=== PATIENT | female | born 1955 | race Caucasian/White ===

== ENCOUNTER 2017-04-09 22:09 | Emergency (ER) | payer MEDICARE, MEDICAID ==
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
--- NOTE | 2017-04-09 23:08 | RAD ---
Procedure: XR HIP 2 OR MORE VIEWS Exam Date: 04/09/2017 Ordering Provider: Yojana Correa Clinical Indication: Pain s/p fall 3 days ago Comparison: 11/01/2012 FINDINGS: Minimally displaced fracture involving the greater trochanter. No other fracture or dislocation. Articular surface of the left hip is intact. Visualized portions of the left hemipelvis are unremarkable. There is no lytic or sclerotic lesion. No suspicious calcifications. Impression: 1. Minimally displaced fracture involving the greater trochanter. Electronically signed by: Robert Hickey MD 04/09/2017 11:08 PM CDT
[2017-04-09] MEDS ORDERED: CYCLOBENZAPRINE HCL 5 MG TAB PO ONE (23:20)
[2017-04-09] MEDS ORDERED: CYCLOBENZAPRINE HCL 10 MG TAB ONE (23:22)
[2017-04-09 23:56] VITALS: BP 126/78; TEMP 98.7; O2SAT 95
== END 2017-04-09 23:45 | disposition home or self-care (01) ==
LOC: ER 22:09
DX: S72.115A Nondisplaced fracture of greater trochanter of left femur, initial encounter for closed fracture (principal); I50.9 Heart failure, unspecified; K21.9 Gastro-esophageal reflux disease without esophagitis; Z87.891 Personal history of nicotine dependence; Z88.2 Allergy status to sulfonamides; Z88.7 Allergy status to serum and vaccine; Z88.8 Allergy status to other drugs, medicaments and biological substances; W19.XXXA Unspecified fall, initial encounter; Y92.410 Unspecified street and highway as the place of occurrence of the external cause

== ENCOUNTER 2017-08-27 16:57 | Emergency (ER) | payer MEDICARE, MEDICAID ==
[2017-08-27 17:20] VITALS: TEMP 98.1; O2SAT 100
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
--- NOTE | 2017-08-27 17:53 | RAD ---
PROCEDURE: Hand,Right 3 Views CLINICAL HISTORY: hand injury INDICATION: Same as above COMPARISON: None . TECHNIQUE: 3.0 Views of the right hand were done. FINDINGS: There is an angulated fracture in the distal diaphysis of the fifth metacarpal bone of the right hand The joint spaces of the hand and the wrist are relatively well-maintained. The bone mineralization is normal for patient's age and sex. The soft tissues are radiographically unremarkable. There is no visualization of any radiopaque foreign bodies in the evaluated soft tissues. If the wrist pain persists, repeat films can be done in 7-10 days interval to rule out occult fractures. Alternatively an MRI of the wrist can be obtained. IMPRESSION: There is an angulated fracture in the distal diaphysis of the fifth metacarpal bone of the right hand Place of interpretation: [facility]. Electronically signed by: Mitchel White MD 08/27/2017 5:52 PM CDT Workstation: [id number]
[2017-08-27 18:50] VITALS: BP 122/74
== END 2017-08-27 18:35 | disposition home or self-care (01) ==
LOC: ER 16:57
DX: S62.356A Nondisplaced fracture of shaft of fifth metacarpal bone, right hand, initial encounter for closed fracture (principal); I50.9 Heart failure, unspecified; Z87.891 Personal history of nicotine dependence; K21.9 Gastro-esophageal reflux disease without esophagitis; Z88.2 Allergy status to sulfonamides; Z88.7 Allergy status to serum and vaccine; W22.09XA Striking against other stationary object, initial encounter; Y92.9 Unspecified place or not applicable

== ENCOUNTER 2017-12-06 15:10 | Emergency (ER) | payer MEDICARE, MEDICAID ==
[2017-12-06 16:38] VITALS: BP 137/71; TEMP 98.9
--- NOTE | 2017-12-06 17:09 | RAD ---
EXAM DESCRIPTION: Shoulder,Right 2 or More Views CLINICAL HISTORY: fall 1 week ago with limited abduction and flexion COMPARISON: None FINDINGS: Two views of the right shoulder were submitted. There is no discrete acute fracture or dislocation. Decreased bone mineralization compatible with osteopenia. There is no radiopaque foreign body material IMPRESSION: No acute fracture or dislocation. Electronically signed by: Jonnathan Orr MD 12/06/2017 5:08 PM [facility]
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
[2017-12-06 17:59] VITALS: O2SAT 97
== END 2017-12-06 17:45 | disposition home or self-care (01) ==
LOC: ER 15:10
DX: S46.001A Unspecified injury of muscle(s) and tendon(s) of the rotator cuff of right shoulder, initial encounter (principal); I50.9 Heart failure, unspecified; W00.0XXA Fall on same level due to ice and snow, initial encounter; Y92.9 Unspecified place or not applicable

== ENCOUNTER → 2018-02-02 | Outpatient (CLI) | payer MEDICARE, MEDICAID ==
--- NOTE | 2018-02-02 11:15 | RAD ---
EXAM DESCRIPTION: Chest 2 views CLINICAL HISTORY: NICOTINE DEPENDENCE COMPARISON: November 23, 2014 TECHNIQUE: PA and lateral views of the chest FINDINGS: Lungs are well aerated bilaterally. No consolidation nor pneumothorax nor pleural effusion in either lung. Cardiomediastinal contours are unremarkable in appearance. Stable mildly accentuated thoracic kyphosis IMPRESSION: No acute cardiopulmonary process. Electronically signed by: Scott Ball MD 02/02/2018 11:14 AM [employer]
== END ==
LOC: LAB.O 09:01
DX: Z00.00 Encounter for general adult medical examination without abnormal findings (principal); R32 Unspecified urinary incontinence; E78.00 Pure hypercholesterolemia, unspecified; F17.200 Nicotine dependence, unspecified, uncomplicated

== ENCOUNTER 2018-03-15 19:39 | Emergency (ER) | payer MEDICARE, MEDICAID ==
[2018-03-15 19:55] VITALS: TEMP 98.9; O2SAT 96
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
--- NOTE | 2018-03-15 20:32 | RAD ---
EXAM DESCRIPTION: Wrist,Right 3 Views CLINICAL HISTORY: 62 years Female, wrist pain after trauma COMPARISON: None FINDINGS: No acute fracture or dislocation. Chronic, healed deformity of the distal fifth metacarpal Soft tissues are unremarkable. IMPRESSION: No acute abnormality. Electronically signed by: Delon Herrera MD 03/15/2018 8:31 PM CDT
[2018-03-15 21:25] VITALS: BP 120/70
== END 2018-03-15 21:26 | disposition home or self-care (01) ==
LOC: ER 19:39
DX: S63.501A Unspecified sprain of right wrist, initial encounter (principal); I50.9 Heart failure, unspecified; K21.9 Gastro-esophageal reflux disease without esophagitis; X50.0XXA Overexertion from strenuous movement or load, initial encounter; Y92.9 Unspecified place or not applicable; Z87.891 Personal history of nicotine dependence

== ENCOUNTER 2018-04-24 21:12 | Emergency (ER) | payer MEDICARE, MEDICAID ==
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
[2018-04-24] MEDS ORDERED: LACTATED RINGERS 1,000 ML IVS ONE (22:05)
--- NOTE | 2018-04-25 00:30 | RAD ---
EXAM: Two view(s) of the right femur. INDICATION: Pain. COMPARISON: None. FINDINGS: No acute fracture or dislocation. No large soft tissue swelling. IMPRESSION: 1. No acute fracture. Electronically signed by: Rick Castellanos MD 04/25/2018 12:29 AM CDT Workstation: [id number]
--- NOTE | 2018-04-25 00:32 | RAD ---
EXAM: Single view chest. INDICATION: Cough. COMPARISON: Chest x-ray: 02/02/2018. FINDINGS: There is a right upper lobe airspace opacity. The left lung is clear. The heart is normal in size. There is no pneumothorax or pleural effusion. IMPRESSION: Right upper lobe airspace opacity, which may represent pneumonia. Electronically signed by: Rick Castellanos MD 04/25/2018 12:31 AM CDT Workstation: [id number]
[2018-04-25] MEDS ORDERED: cefTRIAXone SODIUM 1 GM in SODIUM CHL 0.9% 50ML MIN-BAG+ 50 ML IVPB ONE (01:00)
[2018-04-25] MEDS ORDERED: DOXYCYCLINE HYCLATE CAP 100 MG CAP PO ONE (01:00)
[2018-04-25] MEDS ORDERED: cefTRIAXone SODIUM 1 GM VIAL ONE (01:12)
[2018-04-25] MEDS ORDERED: SODIUM CHL 0.9% 50ML MIN-BAG+ 50 ML IVPB ONE (01:13)
[2018-04-25] MEDS ORDERED: LIDOCAINE 1% 10 ML VIAL INJ ONE (01:14)
[2018-04-25 01:22] VITALS: BP 126/81; TEMP 97.8; O2SAT 97
[2018-04-25] MEDS ORDERED: cefTRIAXone SODIUM 1 GM VIAL IM ONE (01:23)
== END 2018-04-25 01:24 | disposition home or self-care (01) ==
LOC: ER 21:12
DX: R25.2 Cramp and spasm (principal); J18.1 Lobar pneumonia, unspecified organism; J45.909 Unspecified asthma, uncomplicated; I50.9 Heart failure, unspecified; K21.9 Gastro-esophageal reflux disease without esophagitis; F41.9 Anxiety disorder, unspecified; Z87.891 Personal history of nicotine dependence
CPT/HCPCS: 36415; 71045; 73551; 80048; 80076; 80307; 81001; 82550; 82553; 84484; 85025; 85610; 85730; J0696; J7050; J7120

== ENCOUNTER 2018-06-28 15:50 | Emergency (ER) | payer MEDICARE, MEDICAID ==
--- NOTE | 2018-06-28 16:42 | RAD ---
EXAM DESCRIPTION: Tibia/Fibula,Right CLINICAL HISTORY: 62 years Female, edema 1 month COMPARISON: None. FINDINGS: Right tibia-fibula x-ray views are obtained showing osteopenia. No fracture or lytic lesion. No dislocation. Prominent plantar and dorsal calcaneal enthesophytes are present. IMPRESSION: Negative for fracture. Electronically signed by: Nelson West MD 06/28/2018 4:40 PM CDT
[2018-06-28 18:40] VITALS: O2SAT 99
--- NOTE | 2018-06-28 18:45 | US ---
EXAM DESCRIPTION: Venous,Lower Extremity RT CLINICAL HISTORY: rle edema 1 month COMPARISON: None Available. TECHNIQUE: Right lower extremity venous duplex FINDINGS: Doppler evaluation of the right lower extremity deep veins was performed. Normal color flow is seen in the common femoral, superficial femoral, profunda femoral and greater saphenous veins. Normal flow is seen in the popliteal vein and veins below the knee in the calf. Normal venous compressibility and flow augmentation. Edematous changes are seen in the subcutaneous soft tissues of the right calf. IMPRESSION: Negative for evidence of deep venous thrombosis on right lower extremity venous Doppler sonogram. Electronically signed by: Nelson West MD 06/28/2018 6:44 PM CDT
[2018-06-28] MEDS ORDERED: FUROSEMIDE 40 MG TAB PO ONE (19:08)
--- NOTE | 2018-06-28 19:15 | ED.PDOC ---
History of Present Illness - General Chief Complaint: General Time Seen by Provider: 06/28/18 15:59 Source: patient Exam Limitations: no limitations - History of Present Illness Initial Comments: the patient is a 62-year-old female presenting to the emergency room secondary to mouth pain and leg swelling. The patient has had some pain to the right lower aspect of her mouth for the last 3 days. On examination she does have a 1 cm diameter aphthous ulcer underneath the right tongue. I see no other oral lesions and no other rashes on her. Additionally she is reporting some swelling of her right lower extremity which is apparently been present for 1-2 months. No history of any DVT or recent trauma. She reports she has always had poor circulation to her legs. No history of any congestive heart failure or kidney failure. No syncope or near-syncope. No trauma to that leg that she can remember. She is a poor historian. She reports that the only medication that she is taking his venlafaxine. Timing/Duration: unsure Severity: mild Improving Factors: nothing Worsening Factors: eating Associated Symptoms: denies symptoms Allergies/Adverse Reactions: Allergies Sulfa Drugs Allergy (Mild, Verified 03/15/18 19:55) Flu Virus Vaccine Allergy (Verified 04/24/18 21:33) Pneumococcal Vaccine Allergy (Verified 04/24/18 21:33) cod fish Allergy (Uncoded 03/15/18 19:55) Steroidal Neuromuscular Blockers Allergy (Uncoded 03/15/18 19:55) Home Medications: Ambulatory Orders chlordiazePOXIDE HCL [Librium] 25 mg PO BID 03/15/18 ARIPiprazole [Abilify] 5 mg PO DAILY 04/24/18 Venlafaxine HCl 37.5 mg PO DAILY 04/24/18 Cefuroxime Axetil [Ceftin] 500 mg PO Q12H 10 Days #20 tablet 04/25/18 Doxycycline Hyclate 100 mg PO BID #14 tab 04/25/18 Review of Systems - Review of Systems Constitutional: States: no symptoms reported EENTM: States: see HPI Respiratory: States: no symptoms reported Cardiology: States: no symptoms reported Gastrointestinal/Abdominal: States: no symptoms reported Genitourinary: States: no symptoms reported Musculoskeletal: States: no symptoms reported Skin: States: see HPI Neurological: States: no symptoms reported Endocrine: States: no symptoms reported All other Systems: No Change from Baseline Past Medical History (General) - Patient Medical History Hx Seizures: No Hx Stroke: No Hx Dementia: No Hx Asthma: No Hx of COPD: No Hx Cardiac Disorders: Yes Hx Congestive Heart Failure: No Hx Pacemaker: No Hx Hypertension: No Hx Thyroid Disease: No Hx Diabetes: No Hx Gastroesophageal Reflux: No Hx Renal Disease: No Hx Cancer: No Hx of HIV: No Hx Hepatitis C: No Hx MRSA: No - Vaccination History Hx Tetanus, Diphtheria Vaccination: No Hx Influenza Vaccination: No Hx Pneumococcal Vaccination: No Immunizations Up to Date: No - Social History Hx Tobacco Use: Yes Hx Chewing Tobacco Use: No Hx Alcohol Use: No Hx Substance Use: No Hx Substance Use Treatment: No Hx Depression: No Feels Threatened In Home Enviroment: No Feels Threatened In a Relationship: No Hx Physical Abuse: No Hx Emotional Abuse: No Hx Suspected Abuse: No - Activities of Daily Living Hospice Agency (if applicable):: None - Female History Patient is a Female of Child Bearing Age (10 -59 yrs old): No Patient : No Family Medical History - Family History Mother Living Status: Hx Family Hypertension: Yes Hx Family Cancer: Yes - sister had breast cancer Physical Exam - Physical Exam General Appearance: Alert, Comfortable, No apparent distress, Unkempt, Other - the patient appears a little bit drowsy Eye Exam: bilateral normal Ears, Nose, Throat: hearing grossly normal, other - see history of present illness Neck: full range of motion, supple Respiratory: lungs clear, normal breath sounds, no respiratory distress, no accessory muscle use Cardiovascular/Chest: regular rate, rhythm Peripheral Pulses: radial,right: 2+, radial,left: 2+, dorsalis pedis,right: 1+, dorsalis pedis,left: 1+ Gastrointestinal/Abdominal: non tender, soft Rectal Exam: deferred Back Exam: no CVA tenderness, no vertebral tenderness Extremity: normal range of motion, no calf tenderness, normal capillary refill, pedal edema - 2+ of the right lower extremity and 1+ left lower extremity Neurologic: phys assistant II-XII nml as tested, alert, oriented x 3 - affect is fairly flat Skin Exam: normal color Comments: Vital Signs - 24 hr 06/28/18 06/28/18 16:08 17:05 Temperature 98.3 F Pulse Rate [ 68 67 Apical] Respiratory 18 18 Rate Blood Pressure 124/84 124/84 [Left Arm] O2 Sat by Pulse 97 99 Oximetry Progress - Progress Progress: 06/28/18 19:16 the patient is a 62-year-old female presenting to the emergency room secondary to one to 2 months worth of swelling to the right lower extremity primarily and 3 days of pain in her mouth. She has an oral aphthous ulcer which will likely go away on its own without any treatment. She can apply topical Orajel as needed to reduce discomfort. Ibuprofen can also be used for discomfort. she can take 1000 g of vitamin B-12 orally for 1-2 weeks. This may reduce the duration. For the edema to the lower extremity she is going to be placed on spironolactone hydrochlorothiazide tablet one half tablet daily. She does need follow-up with her primary care doctor in 1-2 weeks for reevaluation of this and possibly lab work. She does have a very mild elevation of her CK as well as her BNP, these will need to be repeated. There is no evidence of any gross fluid overload otherwise. She does need to keep follow-up with her primary care doctor in the coming weeks. ER warnings were given for any significant worsening. - Results/Orders Results/Orders: Laboratory Tests 06/28/18 06/28/18 06/28/18 16:40 16:40 16:40 WBC 9.2 RBC 3.88 L Hgb 12.3 Hct 36.0 MCV 92.9 MCH 31.7 H MCHC 34.1 RDW 13.6 Plt Count 199 MPV 8.0 Absolute Neuts (auto) 7.10 H Absolute Lymphs (auto) 1.30 Absolute Monos (auto) 0.70 Absolute Eos (auto) 0.10 Absolute Basos (auto) 0.00 Neutrophils % 77.3 Lymphocytes % 14.2 L Monocytes % 7.5 Eosinophils % 0.6 L Basophils % 0.4 D-Dimer, Quantitative 0.58 H* Sodium 138 Potassium 4.0 Chloride 99 L Carbon Dioxide 27 Anion Gap 16.0 BUN 13 Creatinine 0.82 BUN/Creatinine Ratio 15.9 Random Glucose 115 H Serum Osmolality 276.7 Calcium 9.4 Total Bilirubin 0.6 AST 28 ALT 23 Alkaline Phosphatase 75 Creatine Kinase 496 H* CK-MB (CK-2) 3.2 CK-MB (CK-2) % 0.65 Troponin I < 0.02 B-Natriuretic Peptide 128.0 H Serum Total Protein 7.1 Albumin 4.1 Globulin 3.0 Albumin/Globulin Ratio 1.4 Urine Color Urine Appearance Urine pH Ur Specific [place] Urine Protein Urine Glucose (UA) Urine Ketones Urine Blood Urine Nitrite Urine Bilirubin Urine Urobilinogen Ur Leukocyte Esterase Urine RBC Urine WBC Ur Epithelial Cells Urine Bacteria 06/28/18 17:12 WBC RBC Hgb Hct MCV MCH MCHC RDW Plt Count MPV Absolute Neuts (auto) Absolute Lymphs (auto) Absolute Monos (auto) Absolute Eos (auto) Absolute Basos (auto) Neutrophils % Lymphocytes % Monocytes % Eosinophils % Basophils % D-Dimer, Quantitative Sodium Potassium Chloride Carbon Dioxide Anion Gap BUN Creatinine BUN/Creatinine Ratio Random Glucose Serum Osmolality Calcium Total Bilirubin AST ALT Alkaline Phosphatase Creatine Kinase CK-MB (CK-2) CK-MB (CK-2) % Troponin I B-Natriuretic Peptide Serum Total Protein Albumin Globulin Albumin/Globulin Ratio Urine Color Yellow Urine Appearance Clear Urine pH 7.0 Ur Specific [place] 1.020 Urine Protein Negative Urine Glucose (UA) Negative Urine Ketones Negative Urine Blood Negative Urine Nitrite Negative Urine Bilirubin Negative Urine Urobilinogen 0.2 Ur Leukocyte Esterase Small H Urine RBC 1-3 Urine WBC 3-5 H Ur Epithelial Cells 5-10 Urine Bacteria Rare x-ray of the right tib-fib shows no acute pathology. Right lower extremity venous ultrasound shows no evidence of any DVT. - EKG/XRAY/CT CT Ordered: No CT Interpretation Call Back: No Departure - Departure Clinical Impression: Edema, lower extremity, Aphthous ulcer Disposition: Discharge to Home or Self Care Condition: Fair Departure Forms: ED Discharge - Pt. Copy, Patient Portal Self Enrollment Instructions: Mouth Sores (DC), Dependent Edema (DC) Diet: regular diet Activity: increase activity as tolerated Referrals: Rock Bingham MD [Primary Care Provider] - 1-2 Weeks Home Medications: Ambulatory Orders chlordiazePOXIDE HCL [Librium] 25 mg PO BID 03/15/18 ARIPiprazole [Abilify] 5 mg PO DAILY 04/24/18 Venlafaxine HCl 37.5 mg PO DAILY 04/24/18 Cefuroxime Axetil [Ceftin] 500 mg PO Q12H 10 Days #20 tablet 04/25/18 Doxycycline Hyclate 100 mg PO BID #14 tab 04/25/18 Additional Instructions: the patient is a 62-year-old female presenting to the emergency room secondary to one to 2 months worth of swelling to the right lower extremity primarily and 3 days of pain in her mouth. She has an oral aphthous ulcer which will likely go away on its own without any treatment. She can apply topical Orajel as needed to reduce discomfort. Ibuprofen can also be used for discomfort. she can take 1000 g of vitamin B-12 orally for 1-2 weeks. This may reduce the duration. For the edema to the lower extremity she is going to be placed on spironolactone hydrochlorothiazide tablet one half tablet daily. A compression stocking may also prove beneficial. She does need follow-up with her primary care doctor in 1-2 weeks for reevaluation of this and possibly lab work. She does have a very mild elevation of her CK as well as her BNP, these will need to be repeated. There is no evidence of any gross fluid overload otherwise. She does need to keep follow-up with her primary care doctor in the coming weeks. ER warnings were given for any significant worsening.
[2018-06-28 19:47] VITALS: BP 128/72; TEMP 98.4
== END 2018-06-28 19:47 | disposition home or self-care (01) ==
LOC: ER 15:50
DX: K12.0 Recurrent oral aphthae (principal); R60.0 Localized edema; R79.89 Other specified abnormal findings of blood chemistry; Z79.899 Other long term (current) drug therapy; Z87.891 Personal history of nicotine dependence

== ENCOUNTER → 2018-07-06 | Outpatient (CLI) | payer MEDICARE | LOC: YCFC.O 10:28 | PROVIDERS: ATTEND Family Medicine | DX: M62.81 Muscle weakness (generalized) (principal); G60.9 Hereditary and idiopathic neuropathy, unspecified ==

== ENCOUNTER → 2018-07-27 | Outpatient (CLI) | payer MEDICARE ==
--- NOTE | 2018-07-27 20:29 | US ---
EXAM DESCRIPTION: Breast,Right: Ultrasound CLINICAL HISTORY: 62 [id number]. Right retroareolar breast mass. COMPARISON: Digital breast tomosynthesis bilateral breast 07/07/2018. TECHNIQUE: Transcutaneous scanning of the right breast utilizing [place]-scale and Doppler modes. Scanning performed by the optical laboratory mechanic with Dr. Shay observing. FINDINGS: Scanning the retroareolar right breast. No distinct solid mass or cyst. No parenchymal edema or large calcifications. No overlying skin changes. No abnormal vascularity. IMPRESSION: Benign exam BIRAD CATEGORY: 2 BENIGN FINDINGS RECOMMENDATIONS: FOLLOW UP: Return to routine digital bilateral screening, one year interval from June 2018. The FINDINGS and the FOLLOW-UP plan were reviewed in person with the patient after the examination. Written communication explaining the IMPRESSION and FOLLOW-UP will be mailed to the patient and referring care provider. According to the [employer], yearly mammograms are recommended starting at age 40 and continuing as long as a woman is in good health. Any breast change noted on a breast self-exam should be reported promptly to the patient's healthcare provider. Breast MRI is recommended for women with an approximately 20-25% or greater lifetime risk of breast cancer, including women with a strong family history of breast or ovarian cancer and women who have been treated for Hodgkin's disease. A negative mammographic report should not delay tissue diagnosis in patients with significant clinical history or physical findings. Extremely dense breast tissue limits the sensitivity of digital mammography. Electronically signed by: Omid Shay MD 07/27/2018 8:28 PM CDT
== END ==
LOC: MAMMO 13:15
PROVIDERS: ATTEND Family Medicine
DX: R92.8 Other abnormal and inconclusive findings on diagnostic imaging of breast (principal)

== ENCOUNTER 2018-08-24 15:01 | Emergency (ER) | payer MEDICARE ==
[2018-08-24 15:35] VITALS: TEMP 97.8; O2SAT 100
--- NOTE | 2018-08-24 16:02 | ED.PDOC ---
History of Present Illness - General Chief Complaint: Problem Stated Complaint: pain with urination Time Seen by Provider: 08/24/18 16:00 Source: patient Exam Limitations: no limitations - History of Present Illness Initial Comments: 1 WK PAIN WITH URINATION AND URGENCY OTHERWISE "DRIBBLES". Timing/Duration: 1 week Severity: moderate Improving Factors: nothing Worsening Factors: nothing Associated Symptoms: denies symptoms Allergies/Adverse Reactions: Allergies Sulfa Drugs Allergy (Mild, Verified 08/24/18 15:35) Flu Virus Vaccine Allergy (Verified 08/24/18 15:35) Pneumococcal Vaccine Allergy (Verified 08/24/18 15:35) cod fish Allergy (Uncoded 08/24/18 15:35) Steroidal Neuromuscular Blockers Allergy (Uncoded 08/24/18 15:35) Home Medications: Ambulatory Orders chlordiazePOXIDE HCL [Librium] 25 mg PO BID 03/15/18 ARIPiprazole [Abilify] 5 mg PO DAILY 04/24/18 Venlafaxine HCl 37.5 mg PO DAILY 04/24/18 Nitrofurantoin Cap [Macrodantin Cap] 50 mg PO Q6H 5 Days #20 capsule 08/24/18 Phenazopyridine HCl [Azo Standard Maximum Stre] 97.5 mg PO BID PRN 3 Days #6 tab 08/24/18 Review of Systems - Review of Systems Constitutional: Denies: chills, fever, malaise EENTM: States: no symptoms reported Respiratory: States: no symptoms reported Cardiology: States: no symptoms reported Gastrointestinal/Abdominal: Denies: abdominal pain, nausea, vomiting Genitourinary: States: dysuria, frequency, pain Musculoskeletal: States: no symptoms reported Skin: States: no symptoms reported Neurological: States: no symptoms reported Endocrine: States: no symptoms reported Hematologic/Lymphatic: States: no symptoms reported All other Systems: Reviewed and Negative Past Medical History (General) - Patient Medical History Hx Seizures: No Hx Stroke: No Hx Dementia: No Hx Asthma: No Hx of COPD: No Hx Cardiac Disorders: Yes Hx Congestive Heart Failure: No Hx Pacemaker: No Hx Hypertension: No Hx Thyroid Disease: No Hx Diabetes: No Hx Gastroesophageal Reflux: No Hx Renal Disease: No Hx Cancer: No Hx of HIV: No Hx Hepatitis C: No Hx MRSA: No Surgical History: tonsillectomy, Hysterectomy - Vaccination History Hx Tetanus, Diphtheria Vaccination: No Hx Influenza Vaccination: No Hx Pneumococcal Vaccination: No - Social History Hx Tobacco Use: Yes Hx Chewing Tobacco Use: No Hx Alcohol Use: No Hx Substance Use: No Hx Substance Use Treatment: No Hx Depression: No Hx Physical Abuse: No Hx Emotional Abuse: No Hx Suspected Abuse: No - Female History Patient is a Female of Child Bearing Age (10 -59 yrs old): No Patient : No Family Medical History - Family History Mother Living Status: Hx Family Hypertension: Yes Hx Family Cancer: Yes - sister had breast cancer Physical Exam - Physical Exam General Appearance: Alert, Unkempt Eye Exam: bilateral normal Ears, Nose, Throat: hearing grossly normal, normal ENT inspection Neck: normal inspection Respiratory: no respiratory distress Gastrointestinal/Abdominal: normal bowel sounds, non tender, soft, no organomegaly, no pulsatile mass Back Exam: normal inspection, no CVA tenderness Extremity: normal range of motion, normal inspection Neurologic: alert, normal mood/affect Skin Exam: normal color, warm/dry Lymphatic: no adenopathy Progress - Progress Progress: UA: TRACE BLOOD, LEUK EST, WBC, BACTERIA. Departure - Departure Clinical Impression: Dysuria, Urgency incontinence UTI (urinary tract infection) Qualifiers: Urinary tract infection type: acute cystitis Hematuria presence: with hematuria Qualified Code(s): N30.01 - Acute cystitis with hematuria Disposition: Discharge to Home or Self Care Condition: Good Departure Forms: ED Discharge - Pt. Copy, Patient Portal Self Enrollment Instructions: DI for Urinary Tract Infection (UTI) Diet: resume usual diet Activity: increase activity as tolerated Referrals: ANNA LOCKETT MD [Primary Care Provider] - 1-2 Weeks Prescriptions: Nitrofurantoin Cap [Macrodantin Cap] 50 mg PO Q6H 5 Days #20 capsule Phenazopyridine HCl [Azo Standard Maximum Stre] 97.5 mg PO BID PRN 3 Days #6 tab PRN Reason: Bladder Pain Home Medications: Ambulatory Orders chlordiazePOXIDE HCL [Librium] 25 mg PO BID 03/15/18 ARIPiprazole [Abilify] 5 mg PO DAILY 04/24/18 Venlafaxine HCl 37.5 mg PO DAILY 04/24/18 Nitrofurantoin Cap [Macrodantin Cap] 50 mg PO Q6H 5 Days #20 capsule 08/24/18 Phenazopyridine HCl [Azo Standard Maximum Stre] 97.5 mg PO BID PRN 3 Days #6 tab 08/24/18
[2018-08-24] MEDS ORDERED: PHENAZOPYRIDINE HCL 200 MG TAB PO ONE (16:09)
[2018-08-24 16:37] VITALS: BP 117/44
[2018-08-24] MEDS ORDERED: NITROFURANTOIN 50 MG CAP PO SCH (17:00)
== END 2018-08-24 16:29 | disposition home or self-care (01) ==
LOC: ER 15:01
DX: N30.01 Acute cystitis with hematuria (principal); N39.41 Urge incontinence; Z79.899 Other long term (current) drug therapy; Z87.891 Personal history of nicotine dependence; Z88.2 Allergy status to sulfonamides; Z88.8 Allergy status to other drugs, medicaments and biological substances; Z88.7 Allergy status to serum and vaccine; Z91.013 Allergy to seafood

== ENCOUNTER → 2018-09-17 | Outpatient (CLI) | payer MEDICARE, MEDICAID ==
--- NOTE | 2018-09-17 10:58 | CT ---
Procedure: CT LUNG SCREENING Exam Date: 09/17/2018. Ordering Provider: GRIS CRANDALL Clinical Indication: ALF SMOKER This patient meets eligibility criteria for low-dose CT lung cancer screening. Comparison: None. Technique: Using a multislice scanner, sequential helical axial imaging was obtained in the thorax, 2.5 mm thickness, 2.5 mm separation, from the level of the thoracic inlet through the lung bases without IV contrast. A low dose protocol was utilized: CTDI: 1.76 mGy. 120. kVp. 45 mA. 2D sagittal and coronal reconstructed images, 6.0 mm thickness, were obtained. This exam was performed according to our departmental dose optimization program which includes use of automated exposure control, adjustment of the mA and/or kV according to patient size and/or use of iterative reconstruction technique. FINDINGS: Lungs and large airways: Minimally dilated airspaces more prevalent in the upper lobes. Pleural-based bilateral blebs with thickened kay in the apices. Peripheral groundglass densities are scattered and some contain clusters of blebs; these are confined to the upper lobes and superior segments of the lower lobes. Minimal scarring in the posterior recess of the right lower lobe medially. 3 mm triangular-shaped nodule with extension to the left major fissure in the anterior aspect of the superior segment left lower lobe on lung window axial sequence 2, image 60. Minimal scarring in the left lower lobe.. Pleura: Pleural changes as previously noted. No pleural effusion or pneumothorax. Mediastinum and aron: evaluation limited by low dose technique and lack of IV contrast. No large soft tissue masses or lymph nodes. Heart and great vessels: Coronary artery calcifications. Proximal brachiocephalic vessels with atherosclerotic calcification. Minimal dilation of the ascending aorta and aortic arch 3.7 cm at the ascending aorta. Chest wall, lower neck, axillae: Evaluation also limited by same factors as described above. Calcifications in the inferior left thyroid lobe. No large soft tissue masses or lymph nodes. Upper abdomen: Included peritoneal cavity with no fluid or free air. Included spleen and adrenal glands normal size. Abdominal aortic atherosclerotic calcifications. Bones: Evaluation limited by screening MIP technique. Multiple levels of thoracic kyphosis with large Schmorl's node superior T11 endplate. No obvious destructive or blastic lesions.. IMPRESSION: Emphysematous changes in the lungs more prevalent in the upper lung lemus. Patchy areas of peripheral groundglass density relatively symmetric and clusters of emphysematous blebs. Multifocal areas of pleural thickening bilaterally. No abnormal nodules. No pleural effusion or pneumothorax. Please see below for lung RADS category and follow-up*. *Lung RADS category Category 1 - No nodule or definitely benign nodules (probability of malignancy less than 1%). Follow-up: Continue annual screening with Low Dose Chest CT in 12 months. Electronically signed by: Omid Shay MD 09/17/2018 10:56 AM CDT
== END ==
LOC: CT 10:00
PROVIDERS: ATTEND Family Medicine
DX: Z87.891 Personal history of nicotine dependence (principal)

== ENCOUNTER 2018-10-28 18:15 | Emergency (ER) | payer MEDICARE, MEDICAID ==
[2018-10-28 18:36] VITALS: BP 142/55; TEMP 98.7; O2SAT 96
[2018-10-28] MEDS: IPRATROPIUM/ALBUTEROL 3 ML VIAL NEB ONE (18:42)
--- NOTE | 2018-10-28 18:43 | ED.PDOC ---
History of Present Illness - General Chief Complaint: Respiratory Problem Stated Complaint: Cough Time Seen by Provider: 10/28/18 18:30 Source: patient Exam Limitations: no limitations - History of Present Illness Comments: PT REPORTS 1 WEEK HISTORY OF COUGH AND CONGESTION. PT DENIES, FEVER, CHILLS, CHEST PAIN, OR SOB. Timing/Duration: week Cough Quality/Degree: moderate, dry cough Improving Factors: nothing Worsening Factors: nothing Associated Symptoms: cough Allergies/Adverse Reactions: Allergies Sulfa Drugs Allergy (Mild, Verified 10/28/18 18:31) Flu Virus Vaccine Allergy (Verified 10/28/18 18:31) Pneumococcal Vaccine Allergy (Verified 10/28/18 18:31) cod fish Allergy (Uncoded 10/28/18 18:31) Steroidal Neuromuscular Blockers Allergy (Uncoded 10/28/18 18:31) Home Medications: Ambulatory Orders chlordiazePOXIDE HCL [Librium] 25 mg PO BID 03/15/18 ARIPiprazole [Abilify] 5 mg PO DAILY 04/24/18 Venlafaxine HCl 37.5 mg PO DAILY 04/24/18 Albuterol Inhaler [Ventolin Hfa Inhaler] 2 puff INH Q4HR PRN #1 inh 10/28/18 Azithromycin Tab [Zithromax] 250 mg PO QD #4 tab 10/28/18 Benzonatate Perles [Tessalon Perles] 200 mg PO TID PRN #30 cap 10/28/18 Review of Systems - Review of Systems Constitutional: Denies: chills, fever EENTM: States: nose congestion. Denies: throat pain Respiratory: States: cough. Denies: short of breath Cardiology: Denies: chest pain, palpitations Gastrointestinal/Abdominal: Denies: abdominal pain, nausea, vomiting Past Medical History (General) - Patient Medical History Hx Seizures: No Hx Stroke: No Hx Dementia: No Hx Asthma: No Hx of COPD: No Hx Cardiac Disorders: Yes - [place] Hx Congestive Heart Failure: Yes Hx Pacemaker: No Hx Hypertension: No Hx Thyroid Disease: No Hx Diabetes: No Hx Gastroesophageal Reflux: No Hx Renal Disease: No Hx Cancer: No Hx of HIV: No Hx Hepatitis C: No Hx MRSA: No Surgical History: tonsillectomy, Hysterectomy - Vaccination History Hx Tetanus, Diphtheria Vaccination: Yes Hx Influenza Vaccination: No Hx Pneumococcal Vaccination: No - Social History Hx Tobacco Use: Yes Hx Chewing Tobacco Use: No Hx Alcohol Use: No Hx Substance Use: No Hx Substance Use Treatment: No Hx Depression: No Hx Physical Abuse: No Hx Emotional Abuse: No Hx Suspected Abuse: No - Female History Patient : No Family Medical History - Family History Mother Living Status: Hx Family Hypertension: Yes Hx Family Cancer: Yes - sister had breast cancer Departure - Departure Clinical Impression: Acute bronchitis, Tobacco abuse Time of Disposition: 18:43 Disposition: Discharge to Home or Self Care Condition: Good Departure Forms: ED Discharge - Pt. Copy, Patient Portal Self Enrollment Instructions: Acute Bronchitis, Adult (DC) Referrals: ANNA LOCKETT MD [Primary Care Provider] - 1-2 Weeks Prescriptions: Albuterol Inhaler [Ventolin Hfa Inhaler] 2 puff INH Q4HR PRN #1 inh PRN Reason: Shortness Of Breath/Wheezing Azithromycin Tab [Zithromax] 250 mg PO QD #4 tab Benzonatate Perles [Tessalon Perles] 200 mg PO TID PRN #30 cap PRN Reason: Cough Home Medications: Ambulatory Orders chlordiazePOXIDE HCL [Librium] 25 mg PO BID 03/15/18 ARIPiprazole [Abilify] 5 mg PO DAILY 04/24/18 Venlafaxine HCl 37.5 mg PO DAILY 04/24/18 Albuterol Inhaler [Ventolin Hfa Inhaler] 2 puff INH Q4HR PRN #1 inh 10/28/18 Azithromycin Tab [Zithromax] 250 mg PO QD #4 tab 10/28/18 Benzonatate Perles [Tessalon Perles] 200 mg PO TID PRN #30 cap 10/28/18
[2018-10-28] MEDS: AZITHROMYCIN 250 MG TAB PO ONE (18:48)
--- NOTE | 2018-10-28 18:59 | RAD ---
EXAM DESCRIPTION: Chest,1 View CLINICAL HISTORY: 62 years Female COUGH COMPARISON: 07/11/2018 FINDINGS: The cardiomediastinal silhouette appears unremarkable. No consolidating infiltrates or pleural effusions. No pneumothorax. IMPRESSION: No acute abnormality is identified. Electronically signed by: Shannan Ulloa MD 10/28/2018 6:57 PM [facility]
== END 2018-10-28 19:04 | disposition home or self-care (01) ==
LOC: ER 18:15
DX: J20.9 Acute bronchitis, unspecified (principal); F17.200 Nicotine dependence, unspecified, uncomplicated; I25.2 Old myocardial infarction; I50.9 Heart failure, unspecified; Z79.899 Other long term (current) drug therapy; Z88.8 Allergy status to other drugs, medicaments and biological substances; Z88.2 Allergy status to sulfonamides; Z91.013 Allergy to seafood
CPT/HCPCS: 71045; 94640; J7620; Q0144

== ENCOUNTER → 2019-01-19 | Outpatient (CLI) | payer MEDICARE, MEDICAID | LOC: LAB.O 11:05 | PROVIDERS: ATTEND Family Medicine | DX: Z79.899 Other long term (current) drug therapy (principal) ==

== ENCOUNTER 2019-03-21 14:25 | Emergency (ER) | payer MEDICARE, MEDICAID ==
[2019-03-21] MEDS ORDERED: PHENAZOPYRIDINE HCL 200 MG TAB PO ONE (14:58)
--- NOTE | 2019-03-21 15:01 | ED.PDOC ---
History of Present Illness - General Chief Complaint: Problem Stated Complaint: painful urination Time Seen by Provider: 03/21/19 14:57 Source: patient - History of Present Illness Initial Comments: PT PRESENTS WITH PAINFUL URINATION FOR THE LAST SEVERAL DAYS ASSOCIATED WITH URINARY FREQUENCY AND LOW BACK PAIN. PT DENIES FEVER, CHILLS, NAUSEA, VOMITING, OR ABDOMINAL PAIN. Timing/Duration: week Quality: intermittent Onset Location: urethral Improving Factors: nothing Worsening Factors: nothing Associated Symptoms: dysuria, loss of bladder control, urinary frequency Allergies/Adverse Reactions: Allergies Sulfa Drugs Allergy (Mild, Verified 10/28/18 18:31) Flu Virus Vaccine Allergy (Verified 10/28/18 18:31) Pneumococcal Vaccine Allergy (Verified 10/28/18 18:31) cod fish Allergy (Uncoded 10/28/18 18:31) Steroidal Neuromuscular Blockers Allergy (Uncoded 10/28/18 18:31) Home Medications: Ambulatory Orders Cefuroxime Axetil [Ceftin] 500 mg PO Q12H 7 Days #14 tablet 03/21/19 Phenazopyridine HCl [Pyridium] 200 mg PO BID 3 Days #6 tab 03/21/19 Review of Systems - Review of Systems Constitutional: Denies: chills, fever EENTM: Denies: nose congestion, throat pain Respiratory: Denies: cough, short of breath Cardiology: Denies: chest pain, palpitations Gastrointestinal/Abdominal: Denies: abdominal pain, nausea, vomiting Genitourinary: States: see HPI, dysuria, frequency. Denies: hematuria Musculoskeletal: States: back pain Skin: States: no symptoms reported Neurological: States: no symptoms reported Past Medical History (General) - Patient Medical History Hx Seizures: No Hx Stroke: No Hx Dementia: No Hx Asthma: No Hx of COPD: No Hx Cardiac Disorders: Yes - [place] Hx Congestive Heart Failure: Yes Hx Pacemaker: No Hx Hypertension: No Hx Thyroid Disease: No Hx Diabetes: No Hx Gastroesophageal Reflux: No Hx Renal Disease: No Hx Cancer: No Hx of HIV: No Hx Hepatitis C: No Hx MRSA: No - Vaccination History Hx Tetanus, Diphtheria Vaccination: Yes Hx Influenza Vaccination: No Hx Pneumococcal Vaccination: No - Social History Hx Tobacco Use: Yes Hx Chewing Tobacco Use: No Hx Alcohol Use: No Hx Substance Use: No Hx Substance Use Treatment: No Hx Depression: No Hx Physical Abuse: No Hx Emotional Abuse: No Hx Suspected Abuse: No - Female History Patient : No Family Medical History - Family History Mother Living Status: Hx Family Hypertension: Yes Hx Family Cancer: Yes - sister had breast cancer Physical Exam - Physical Exam General Appearance: Alert, Obvious distress, Well Hydrated, Well Nourished Eyes, Ears, Nose, Throat Exam: normal ENT inspection Neck: normal inspection Cardiovascular/Respiratory: no respiratory distress Gastrointestinal/Abdominal: non tender, soft Back Exam: normal inspection, no CVA tenderness, no vertebral tenderness Extremity: normal inspection Neurologic: alert, normal mood/affect, oriented x 3 Skin Exam: normal color, warm/dry Progress - Results/Orders Results/Orders: Laboratory Tests 03/21/19 15:16 Urine Color Yellow Urine Appearance Clear Urine pH 6.0 Ur Specific [place] 1.015 Urine Protein Negative Urine Glucose (UA) Negative Urine Ketones Negative Urine Blood Negative Urine Nitrite Negative Urine Bilirubin Negative Urine Urobilinogen 0.2 Ur Leukocyte Esterase Moderate H Urine RBC 0 Urine WBC 20-30 H Ur Epithelial Cells 0 Urine Bacteria Rare Departure - Departure Clinical Impression: UTI (urinary tract infection) Time of Disposition: 15:38 Disposition: Discharge to Home or Self Care Condition: Fair Departure Forms: ED Discharge - Pt. Copy, Patient Portal Self Enrollment Instructions: DI for Urinary Tract Infection (UTI) Referrals: Rock Bingham MD [Primary Care Provider] - 1-5 Days Prescriptions: Cefuroxime Axetil [Ceftin] 500 mg PO Q12H 7 Days #14 tablet Phenazopyridine HCl [Pyridium] 200 mg PO BID 3 Days #6 tab Home Medications: Ambulatory Orders Cefuroxime Axetil [Ceftin] 500 mg PO Q12H 7 Days #14 tablet 03/21/19 Phenazopyridine HCl [Pyridium] 200 mg PO BID 3 Days #6 tab 03/21/19
[2019-03-21] MEDS ORDERED: cefTRIAXone SODIUM 1 GM VIAL IM ONE (15:33)
[2019-03-21 16:07] VITALS: BP 130/80; TEMP 97.1; O2SAT 98
== END 2019-03-21 16:06 | disposition home or self-care (01) ==
LOC: ER 14:25
DX: N39.0 Urinary tract infection, site not specified (principal); I25.2 Old myocardial infarction; I50.9 Heart failure, unspecified; Z87.891 Personal history of nicotine dependence; Z88.2 Allergy status to sulfonamides; Z88.7 Allergy status to serum and vaccine; Z91.013 Allergy to seafood; Z88.8 Allergy status to other drugs, medicaments and biological substances

== ENCOUNTER 2021-01-18 20:10 | Emergency (ER) | payer MEDICARE, MEDICAID ==
--- NOTE | 2021-01-18 21:23 | RAD ---
PROCEDURE: XR RIBS 2 VIEWS UNILATERAL CLINICAL HISTORY: 65 years Female fall, left post rib pain 1 week COMPARISON: 10/28/2018 chest x-ray. TECHNIQUE: Two views of the left ribs. FINDINGS: The cardiomediastinal silhouette appears unremarkable. No consolidating infiltrates or pleural effusions. No pneumothorax. There is scarring in the lung apices. No definite acute rib fractures are identified. IMPRESSION: No acute abnormality is identified. Electronically signed by: Frankie Ulloa MD 01/18/2021 9:22 PM [facility]
[2021-01-18] MEDS ORDERED: KETOROLAC TROMETHAMINE INJ 30 MG/ML VIAL IM ONE (21:36)
[2021-01-18] MEDS ORDERED: CYCLOBENZAPRINE HCL 5 MG TAB PO ONE (21:36)
--- NOTE | 2021-01-18 21:42 | ED.PDOC ---
History of Present Illness - General Chief Complaint: General Stated Complaint: LEFT RIB PAIN Time Seen by Provider: 01/18/21 20:18 Source: patient Exam Limitations: no limitations - History of Present Illness Initial Comments: The patient is a 65-year-old female presented to emergency room secondary to pain in the posterior lower left rib cage area. Apparently the p atient fell backwards about 5 days ago and landed on a step in that area. She has had continued pain there. No real shortness of breath. No productive cough. No fever. The pain is just been uncontrolled. Vital signs are stable. No hypoxia. Lung sounds are symmetrical. She does have mild bruising at the posterior inferior left rib cage. Timing/Duration: other - 5 days Severity: moderate Improving Factors: immobilization Worsening Factors: movement Associated Symptoms: denies symptoms Allergies/Adverse Reactions: Allergies Sulfa Drugs Allergy (Mild, Verified 10/28/18 18:31) Flu Virus Vaccine Allergy (Verified 10/28/18 18:31) Pneumococcal Vaccine Allergy (Verified 10/28/18 18:31) cod fish Allergy (Uncoded 10/28/18 18:31) Steroidal Neuromuscular Blockers Allergy (Uncoded 10/28/18 18:31) Home Medications: Ambulatory Orders Cefuroxime Axetil [Ceftin] 500 mg PO Q12H 7 Days #14 tablet 03/21/19 Phenazopyridine HCl [Pyridium] 200 mg PO BID 3 Days #6 tab 03/21/19 Cyclobenzaprine HCl [Flexeril] 5 mg PO TID PRN #30 tab 01/18/21 Review of Systems - Review of Systems Constitutional: States: no symptoms reported EENTM: States: no symptoms reported Respiratory: States: no symptoms reported Gastrointestinal/Abdominal: States: no symptoms reported Musculoskeletal: States: back pain Skin: States: no symptoms reported Neurological: States: no symptoms reported Endocrine: States: no symptoms reported Hematologic/Lymphatic: States: no symptoms reported All other Systems: No Change from Baseline Past Medical History (General) - Patient Medical History Hx Seizures: No Hx Stroke: No Hx Dementia: No Hx Asthma: No Hx of COPD: No Hx Cardiac Disorders: Yes - [place] Hx Congestive Heart Failure: Yes Hx Pacemaker: No Hx Hypertension: No Hx Thyroid Disease: No Hx Diabetes: No Hx Gastroesophageal Reflux: No Hx Renal Disease: No Hx Cancer: No Hx of HIV: No Hx Hepatitis C: No Hx MRSA: No - Vaccination History Hx Tetanus, Diphtheria Vaccination: Yes Hx Influenza Vaccination: No Hx Pneumococcal Vaccination: No - Social History Hx Tobacco Use: Yes Hx Chewing Tobacco Use: No Hx Alcohol Use: No Hx Substance Use: No Hx Substance Use Treatment: No Hx Depression: No Hx Physical Abuse: No Hx Emotional Abuse: No Hx Suspected Abuse: No - Female History Patient is a Female of Child Bearing Age (10 -59 yrs old): No Patient : No Family Medical History - Family History Mother Family History: Unknown Living Status: Hx Family Hypertension: Yes Hx Family Cancer: Yes - sister had breast cancer Physical Exam - Physical Exam General Appearance: Alert Eye Exam: bilateral normal Ears, Nose, Throat: hearing grossly normal, normal pharynx Neck: full range of motion Respiratory: lungs clear, normal breath sounds, no respiratory distress, no accessory muscle use Cardiovascular/Chest: normal peripheral pulses, regular rate, rhythm - Frequent PVCs on telemetry, no edema Peripheral Pulses: radial,right: 2+, radial,left: 2+ Gastrointestinal/Abdominal: non tender, soft Rectal Exam: deferred Back Exam: no vertebral tenderness, other - See history of present illness Extremity: normal range of motion, non-tender, normal inspection, no pedal edema, normal capillary refill Neurologic: safe and vault mechanic II-XII nml as tested, alert, normal mood/affect, oriented x 3 Skin Exam: normal color Comments: Vital Signs - 24 hr 01/18/21 20:30 Temperature 98.0 F Pulse Rate [ 82 Left Radial] Respiratory 18 Rate Blood Pressure 141/63 [Left Arm] O2 Sat by Pulse 97 Oximetry Progress - Progress Progress: 01/18/21 21:43 The patient is a 65-year-old female presented emergency room secondary to pain to the posterior inferior left rib cage. This is due to a fall. Rib series shows no evidence of fracture and no evidence of any pneumothorax. The patient is being dosed with a dose of Toradol and Flexeril [facility]. She can take 2 Aleve orally twice daily with food and she will be written for Flexeril for as needed use to reduce associated muscle spasm. She does need to take big deep breaths in order to prevent pneumonia. ER warnings are given. Keep routine follow-up with primary care doctor. diego florez [phone] Departure - Departure Clinical Impression: Fall at home Qualifiers: Encounter type: initial encounter Qualified Code(s): W19.XXXA - Unspecified fall, initial encounter; Y92.009 - Unspecified place in unspecified non- institutional (private) residence as the place of occurrence of the external cause Contusion of rib Qualifiers: Encounter type: initial encounter Laterality: left Qualified Code(s): S20.212A - Contusion of left front wall of thorax, initial encounter Disposition: Discharge to Home or Self Care Condition: Fair Departure Forms: ED Discharge - Pt. Copy, Patient Portal Self Enrollment Instructions: Bruised Rib (DC) Diet: regular diet Activity: increase activity as tolerated Referrals: PANCHO CURIEL IV, HOUSEKEEPER SUPERVISOR [Primary Care Provider] - 1-2 Weeks Prescriptions: Cyclobenzaprine HCl [Flexeril] 5 mg PO TID PRN #30 tab PRN Reason: Muscle Spasms Home Medications: Ambulatory Orders Cefuroxime Axetil [Ceftin] 500 mg PO Q12H 7 Days #14 tablet 03/21/19 Phenazopyridine HCl [Pyridium] 200 mg PO BID 3 Days #6 tab 03/21/19 Cyclobenzaprine HCl [Flexeril] 5 mg PO TID PRN #30 tab 01/18/21 Additional Instructions: The patient is a 65-year-old female presented emergency room secondary to pain to the posterior inferior left rib cage. This is due to a fall. Rib series shows no evidence of fracture and no evidence of any pneumothorax. The patient is being dosed with a dose of Toradol and Flexeril here tonight. She can take 2 Aleve orally twice daily with food and she will be written for Flexeril for as needed use to reduce associated muscle spasm. She does need to take big deep breaths in order to prevent pneumonia. ER warnings are given. Keep routine follow-up with primary care doctor.
[2021-01-18 22:07] VITALS: BP 132/87; TEMP 97.8; O2SAT 96
== END 2021-01-18 22:07 | disposition home or self-care (01) ==
LOC: ER 20:10
DX: S20.212A Contusion of left front wall of thorax, initial encounter (principal); I49.3 Ventricular premature depolarization; I25.2 Old myocardial infarction; I50.9 Heart failure, unspecified; Z79.899 Other long term (current) drug therapy; Z88.2 Allergy status to sulfonamides; Z88.7 Allergy status to serum and vaccine; Z88.8 Allergy status to other drugs, medicaments and biological substances; W01.198A Fall on same level from slipping, tripping and stumbling with subsequent striking against other object, initial encounter; Y92.009 Unspecified place in unspecified non-institutional (private) residence as the place of occurrence of the external cause
CPT/HCPCS: 71101; 93005; J1885